=== PATIENT | female | born 1950 | race Caucasian/White ===

== ENCOUNTER → 2021-01-05 | Outpatient (CLI) | payer MEDICARE ==
[~2021-01-05] MED LIST: CITRACAL; GADOTERATE 7.5 MMOL/15ML SYR ONE; MIRA50TA PO; MULT-658 PO; OMEP-110 PO; SIMV10TA18 PO; TYLENOL PM; VERA240C2 PO
== END | disposition home or self-care (01) ==
LOC: CFH 11:58
PROVIDERS: ATTEND Internal Medicine
DX: K57.10 Diverticulosis of small intestine without perforation or abscess without bleeding (principal); K92.1 Melena; Z90.49 Acquired absence of other specified parts of digestive tract
CPT/HCPCS: 72197; 74183; A9575